=== PATIENT | male | born 1955 | race Caucasian/White ===

== ENCOUNTER 2018-08-26 11:15 | Day surgery (SDC) | payer OTHER ==
[2018-08-22 09:36] VITALS: BMI 29.5
[~2018-08-26 11:15] MED LIST: LACTATED RINGERS 1,000 ML IV SCH
[2018-08-26 11:56] VITALS: RESP 16; TEMP 98.8
[2018-08-26] MEDS ORDERED: LIDOCAINE 1% 20 ML VIAL (10MG/ML) FOR IV START INTRADERMA ONE (12:07)
[2018-08-26] MEDS ORDERED: PROPOFOL 10 MG/ML 20 ML VIAL IV ONE (12:52)
--- NOTE | 2018-08-26 13:18 | P.PCN ---
Date of Procedure: 08/26/18 Procedure(s) Performed: Procedure: Total colonoscopy. Preoperative diagnosis: Screening for neoplasia. Postoperative diagnosis: Exam within normal limits. Preparation: HalfLytely prep. Sedation: Was provided by anesthesia. Brief clinical history: The patient is a 63-year-old male who is scheduled for t his evaluation for screening for neoplasia age being his risk factor. There is no family history of colon cancer. He has no abdominal complaints, bleeding or anemia. This would be his first colonoscopy. Procedure: With the patient on his left lateral decubitus position and after informed consent and adequate sedation, the perianal area was inspected and it did not show any fissures or fistulas. He were no masses felt on digital rectal examination. The Olympus CFH 190L video colonoscope was then inserted in the rectum in the usual fashion and advanced to the cecum. The mucosa appeared he althy. No polyps or tumors were seen or any obvious diverticular disease or any other pathology. I retroflexed the endoscope in the rectum before the endoscope was withdrawn. Low-grade internal hemorrhoids were noted with no evidence of bleeding. The patient tolerated the procedure well. Plan: The patient was reassured. Discussed dietary measures and local care for hemorrhoids. He will follow up with you as planned and I recommended repeat exam in 10 years.
[2018-08-26 13:26] VITALS: BP 121/70; PULSE 70
== END 2018-08-26 14:05 | disposition home or self-care (01) ==
LOC: ORWHC2ENDO 11:15
DX: Z12.11 Encounter for screening for malignant neoplasm of colon (principal); I10 Essential (primary) hypertension; M10.9 Gout, unspecified; K64.8 Other hemorrhoids; Z79.899 Other long term (current) drug therapy
CPT/HCPCS: J2704; G0121

== ENCOUNTER 2019-10-17 02:50 | Observation (INO) | payer OTHER ==
[2019-10-17] MEDS ORDERED: SODIUM CHLORIDE 0.9% 1,000 ML IV STA (03:41)
[2019-10-17] MEDS ORDERED: MORPHINE SULFATE 4 MG/ML SYRINGE IV STA (03:41)
[2019-10-17] MEDS ORDERED: ONDANSETRON 4 MG/2 ML VIAL IVP STA (03:41)
--- NOTE | 2019-10-17 03:54 | ED ---
Abdominal Pain HPI - General Chief Complaint: Abdominal Pain Stated Complaint: Abd Pain Time Seen by Provider: 10/17/19 02:56 Source: patient Mode of arrival: ambulatory Limitations: no limitations - History of Present Illness Initial Comments: Antonio is a 44-year-old male who presents the ER today for evaluation of burning epigastric abdominal pain radiating to his back. Patient reports he's had mild episodes of pain similar to this in the past but never one that persisted. Patient reports the pain began yesterday evening and has kept him awake all night. He did have an episode of vomiting around 8 PM. No diarrhea. Normal bowel movement yesterday. She has never been worked up for this pain in the past. He does admit to frequent beer drinking. Patient denies any pain after eating or other signs of biliary colic. - Related Data Home Medications Medication Instructions Recorded Confirmed Allopurinol [Zyloprim] 300 mg PO DAILY 08/22/18 08/26/18 Lisinopril-Hctz 20-12.5 mg 1 tab PO DAILY 08/22/18 08/26/18 [Zestoretic 20-12.5] busPIRone HCL 15 mg PO DAILY 08/22/18 08/26/18 Allergies Allergy/AdvReac Type Severity Reaction Status Date / Time No Known Allergies Allergy Verified 10/17/19 02:59 Review of Systems ROS Statement: Those systems with pertinent positive or pertinent negative responses have been documented in the HPI. ROS Other: All systems not noted in ROS Statement are negative. Past Medical History Past Medical History: Hypertension Additional Past Medical History / Comment(s): GOUT, anxiety History of Any Multi-Drug Resistant Organisms: None Reported Past Surgical History: Orthopedic Surgery, Tonsillectomy Additional Past Surgical History / Comment(s): RT ANKLE SX, NECK SX AND SINUS SX Past Anesthesia/Blood Transfusion Reactions: No Reported Reaction Past Psychological History: Anxiety Smoking Status: Current every day smoker Past Alcohol Use History: None Reported Past Drug Use History: None Reported - Past Family History Mother Family Medical History: No Reported History General Exam - General Exam Comments Initial Comments: Physical Exam GENERAL: Patient is well-developed and well-nourished. Patient is nontoxic and well-hydrated and is in no distress. HENT: Normocephalic, Atraumatic. EYES: PERRL, EOMI PULMONARY: Unlabored respirations. CARDIOVASCULAR: RRR Warm and well perfused extremities ABDOMEN: Obese, tenderness to palpation in the epigastrium No pulsatile masses SKIN: No rashes or bruising : Deferred NEUROLOGIC: Alert and oriented Normal speech Normal gait MUSCULOSKELETAL: Moving all extremities with no apparent injury PSYCHIATRIC: No SI/HI Limitations: no limitations Course Vital Signs 10/17/19 10/17/19 02:55 05:15 Temperature 98.3 F Pulse Rate 80 80 Respiratory 18 18 Rate Blood Pressure 145/98 157/74 O2 Sat by Pulse 98 98 Oximetry Medical Decision Making - Medical Decision Making History and physical exam concerning for pancreatitis considering the history of alcohol drinking and the description of pain radiating from the epigastrium to the back Labs, antiemetics, analgesia and IV fluids ordered Patient reported minimal improvement in his discomfort after morphine, Dilaudid was ordered Labs resulted leukocytosis no other significant abnormalities CT scan with no obvious abnormalities there are gallstones in the gallbladder but no secondary signs of acute cholecystitis no fluid or inflammation noted Due to persistence of pain after 2 doses of narcotics patient will be admitted for observation, a consult to GI will be placed. Patient is previously followed with Dr. Jackson therefore consult to Dr. lennon she will be placed. Ultrasound to evaluate the gallbladder was placed. - Lab Data Result diagrams: 10/17/19 03:48 10/17/19 03:48 Lab Results 10/17/19 10/17/19 10/17/19 Range/Units 03:48 03:48 03:48 WBC 14.6 H (3.8-10.6) k/uL RBC 4.68 (4.30-5.90) m/uL Hgb 15.9 (13.0-17.5) gm/dL Hct 46.8 (39.0-53.0) % MCV 100.1 H (80.0-100.0) fL MCH 34.1 (25.0-35.0) pg MCHC 34.0 (31.0-37.0) g/dL RDW 13.6 (11.5-15.5) % Plt Count 257 (150-450) k/uL Neutrophils % 88 % Lymphocytes % 9 % Monocytes % 2 % Eosinophils % 0 % Basophils % 0 % Neutrophils # 12.8 H (1.3-7.7) k/uL Lymphocytes # 1.3 (1.0-4.8) k/uL Monocytes # 0.3 (0-1.0) k/uL Eosinophils # 0.0 (0-0.7) k/uL Basophils # 0.0 (0-0.2) k/uL Sodium 133 L (137-145) mmol/L Potassium 4.4 (3.5-5.1) mmol/L Chloride 100 (98-107) mmol/L Carbon Dioxide 25 (22-30) mmol/L Anion Gap 8 mmol/L BUN 12 (9-20) mg/dL Creatinine 1.13 (0.66-1.25) mg/dL Est GFR (CKD-EPI)AfAm 79 (>60 ml/min/1.73 sqM) Est GFR (CKD-EPI)NonAf 69 (>60 ml/min/1.73 sqM) Glucose 152 H (74-99) mg/dL Calcium 9.8 (8.4-10.2) mg/dL Total Bilirubin 0.4 (0.2-1.3) mg/dL AST 22 (17-59) U/L ALT 19 (4-49) U/L Alkaline Phosphatase 98 (38-126) U/L Troponin I <0.012 (0.000-0.034) ng/mL Total Protein 7.5 (6.3-8.2) g/dL Albumin 4.6 (3.5-5.0) g/dL Amylase 54 (30-110) U/L Lipase 69 (23-300) U/L Urine Color Urine Appearance (Clear) Urine pH (5.0-8.0) Ur Specific [place] (1.001-1.035) Urine Protein (Negative) Urine Glucose (UA) (Negative) Urine Ketones (Negative) Urine Blood (Negative) Urine Nitrite (Negative) Urine Bilirubin (Negative) Urine Urobilinogen (<2.0) mg/dL Ur Leukocyte Esterase (Negative) 10/17/19 Range/Units 04:19 WBC (3.8-10.6) k/uL RBC (4.30-5.90) m/uL Hgb (13.0-17.5) gm/dL Hct (39.0-53.0) % MCV (80.0-100.0) fL MCH (25.0-35.0) pg MCHC (31.0-37.0) g/dL RDW (11.5-15.5) % Plt Count (150-450) k/uL Neutrophils % % Lymphocytes % % Monocytes % % Eosinophils % % Basophils % % Neutrophils # (1.3-7.7) k/uL Lymphocytes # (1.0-4.8) k/uL Monocytes # (0-1.0) k/uL Eosinophils # (0-0.7) k/uL Basophils # (0-0.2) k/uL Sodium (137-145) mmol/L Potassium (3.5-5.1) mmol/L Chloride (98-107) mmol/L Carbon Dioxide (22-30) mmol/L Anion Gap mmol/L BUN (9-20) mg/dL Creatinine (0.66-1.25) mg/dL Est GFR (CKD-EPI)AfAm (>60 ml/min/1.73 sqM) Est GFR (CKD-EPI)NonAf (>60 ml/min/1.73 sqM) Glucose (74-99) mg/dL Calcium (8.4-10.2) mg/dL Total Bilirubin (0.2-1.3) mg/dL AST (17-59) U/L ALT (4-49) U/L Alkaline Phosphatase (38-126) U/L Troponin I (0.000-0.034) ng/mL Total Protein (6.3-8.2) g/dL Albumin (3.5-5.0) g/dL Amylase (30-110) U/L Lipase (23-300) U/L Urine Color Yellow Urine Appearance Clear (Clear) Urine pH 6.0 (5.0-8.0) Ur Specific [place] 1.018 (1.001-1.035) Urine Protein Negative (Negative) Urine Glucose (UA) Negative (Negative) Urine Ketones Negative (Negative) Urine Blood Negative (Negative) Urine Nitrite Negative (Negative) Urine Bilirubin Negative (Negative) Urine Urobilinogen <2.0 (<2.0) mg/dL Ur Leukocyte Esterase Negative (Negative) Disposition Clinical Impression: Abdominal pain Disposition: ADMITTED IP TO THIS [facility] Condition: Stable Is patient prescribed a controlled substance at d/c from ED?: No Referrals: Mira Gonsalves DO [Primary Care Provider] - 1-2 days
[2019-10-17 03:55] LABS: Basophils % (A) 0 %; Eosinophils % (A) 0 %; HCT 46.8 % (39.0-53.0); HGB 15.9 gm/dL (13.0-17.5); Lymphocytes # (A) 1.3 k/uL (1.0-4.8); Lymphocytes % (A) 9 %; MCH 34.1 pg (25.0-35.0); MCV 100.1 fL (80.0-100.0); Monocytes # (A) 0.3 k/uL (0-1.0); Monocytes % (A) 2 %; Neutrophils # (A) 12.8 k/uL (1.3-7.7); Neutrophils % (A) 88 %; Platelet Count 257 k/uL (150-450); RBC 4.68 m/uL (4.30-5.90); RDW 13.6 % (11.5-15.5); WBC 14.6 k/uL (3.8-10.6)
[2019-10-17 04:03] LABS: Albumin 4.6 g/dL (3.5-5.0); Calcium 9.8 mg/dL (8.4-10.2); Potassium 4.4 mmol/L (3.5-5.1); Total Bilirubin 0.4 mg/dL (0.2-1.3); Total Protein 7.5 g/dL (6.3-8.2)
--- NOTE | 2019-10-17 04:17 | XR ---
EXAMINATION TYPE: XR KUB DATE OF EXAM: 10/17/2019 COMPARISON: NONE HISTORY: Abdominal pain TECHNIQUE: 2 views upright FINDINGS: There is no sign of intestinal obstruction or pneumoperitoneum. Fecal pattern is normal. Meghan ng bases are clear. There are no pathologic calcifications over the kidneys. IMPRESSION: Nonacute abdomen.
[2019-10-17 04:27] LABS: Appearance,Urine Clear (Clear); Bilirubin,Urine Negative (Negative); Blood,Urine Negative (Negative); Color,Urine Yellow; Glucose,Urine (UA) Negative (Negative); Ketones,Urine Negative (Negative); Leukocyte Esterase,Urine Negative (Negative); Nitrite,Urine Negative (Negative); Protein,Urine Negative (Negative); Specific Gravity,Urine 1.018 (1.001-1.035); Urobilinogen,Urine <2.0 mg/dL (<2.0)
[2019-10-17] MEDS ORDERED: HYDROmorphone 1 MG/ML 1 ML SYRINGE IVP STA (05:12)
--- NOTE | 2019-10-17 05:18 | CT ---
EXAMINATION TYPE: CT abdomen pelvis w con DATE OF EXAM: 10/17/2019 COMPARISON: None HISTORY: Abd Pain Back pain CT DLP: 1291.20 mGycm Automated exposure control for dose reduction was used. CONTRAST: Performed with IV Contrast, patient injected with 100 mL of Isovue 300. Lung bases are clear of consolidation. There is mild subsegmental atelectasis. Heart size is normal. There is no pericardial effusion. There is no pleural effusion. Liver shows no focal defect. There ap pears to be multiple gallstones. The bile ducts are not dilated. Spleen is intact. Stomach is intact. There is no pancreatic mass. There is no adrenal mass. Left kidney is relatively small with cortical thinning. Right kidney shows some compensatory hypertrophy. There is no hydronephrosis. There is no evidence of a renal mass. Ther e is no retroperitoneal adenopathy. Ureters are not dilated. Bladder distends smoothly. There is no i nguinal hernia. There is no free fluid in the pelvis. Appendix is posterior and medial and appears normal. There is no mesenteric edema. There is no ascite s or free air. There is no sign of a bowel obstruction. Lumbar vertebra have normal spacing and alignment. There is no compression fracture. Bony pelvis is i ntact. IMPRESSION: Normal appendix. No sign of acute abnormality within the abdomen pelvis. Renal asymmetry. No renal ma ss or obstruction.
[2019-10-17] MEDS ORDERED: MAG HYDROX/AL HYDROX/SIMETH 30 ML, HYOSCYAMINE ELIXIR 10 ML, LIDOCAINE VISCOUS 2% 10 ML PO STA ×3 (05:48)
[2019-10-17] MEDS ORDERED: NALOXONE 0.4 MG/ML 1 ML VIAL IV PRN (05:51)
[2019-10-17] MEDS: SODIUM CHLORIDE 0.9% 1,000 ML IV SCH ×2 (06:09→12:32)
[2019-10-17] MEDS: MORPHINE SULFATE 4 MG/ML SYRINGE IV PRN ×3 (07:33→15:54)
[2019-10-17] MEDS ORDERED: PANTOPRAZOLE 40 MG/10 ML VIAL IV SCH (09:00)
--- NOTE | 2019-10-17 09:19 | US ---
EXAMINATION TYPE: US gallbladder DATE OF EXAM: 10/17/2019 COMPARISON: CT CLINICAL HISTORY: epigastric pain, stones on CT. Stones on CT. Pain. EXAM MEASUREMENTS: Liver Length: 20.9 cm Gallbladder Wall: 0.2 cm CBD: 0.4 cm Right Kidney: 11.4 x 5.1 x 4.8 cm Pancreas: Echogenic in appearance. Tail obscured by overlying bowel gas. Liver: Increased attenuation, decreased visualization of vessels suggestive of fatty infiltrate. Ec hogenic and enlarged. Appears coarse. Gallbladder: Stones seen. Two located by the neck, one appeared mobile. Largest = 1.6 cm. Evidence for sonographic Betancur's sign: neg CBD: wnl Right Kidney: No hydronephrosis or masses seen IMPRESSION: 1. Hepatomegaly with mild fatty infiltration. 2. Cholelithiasis
[2019-10-17] MEDS: DICYCLOMINE 20 MG TAB PO SCH ×3 (12:28→21:13)
--- NOTE | 2019-10-17 15:02 | P.HPIM ---
History of Present Illness This is a pleasant 64 years old male with past medical history of hypertension and gout. Cigarette smoker and anxiety. He presents because of abdominal pain, right middle abdomen which is starts at about 6 PM last night and gradually gets worse and in the midleft that he has to come to the hospital because it was like a valenzuela as 01/22, the pain radiating to the back. No associated with nausea vomiting, he did not have bowel movements is yesterday. No fever. No chest pain or dyspnea. No weakness in the lower extremity, no dysuria or urinary abnormality. Vitals are stable. Labs showed leukocytosis of 14.6 K. Sodium 133. Rest of BMP, liver enzymes are unremarkable. Troponin is negative less than 0.012, urine analysis is negativeCT of the abdomen and pelvis: Normal appendix. No signs of acute abnormality within the abdomen and pelvis. Renal asymmetry. No renal mass or obstruction. Multiple gallstones Normal bile duct, no hydronephrosis. Hepatomegaly with fatty infiltration. Cholelithiasis. In the emergency room he was treated with Dilaudid, Zofran with normal saline and 0.25 L/h Review of Systems CONSTITUTIONAL: No fever, no malaise, no fatigue. HEENT: No recent visual problems or hearing problems. Denied any sore throat. CARDIOVASCULAR: No orthopnea, PND, no palpitations, no syncope. PULMONARY: No shortness of breath, no cough, no hemoptysis. GASTROINTESTINAL: No diarrhea, no nausea, no vomiting, no abdominal pain. Normoactive bowel sounds. NEUROLOGICAL: No headaches, no weakness, no numbness. HEMATOLOGICAL: Denies any bleeding or petechiae. GENITOURINARY: Denies any burning micturition, frequency, or urgency. MUSCULOSKELETAL/RHEUMATOLOGICAL: Denies any joint pain, swelling, or any muscle pain. ENDOCRINE: Denies any polyuria or polydipsia. d Past Medical History Past Medical History: Hypertension Additional Past Medical History / Comment(s): GOUT, anxiety History of Any Multi-Drug Resistant Organisms: None Reported Past Surgical History: Orthopedic Surgery, Tonsillectomy Additional Past Surgical History / Comment(s): RT ANKLE SX, NECK SX AND SINUS SX Past Anesthesia/Blood Transfusion Reactions: No Reported Reaction Past Psychological History: Anxiety Smoking Status: Current every day smoker Past Alcohol Use History: None Reported Additional Past Alcohol Use History / Comment(s): SMOKES 1 PPD SINCE 1973 Past Drug Use History: None Reported - Past Family History Mother Family Medical History: No Reported History Medications and Allergies Home Medications Medication Instructions Recorded Confirmed Type Allopurinol [Zyloprim] 300 mg PO DAILY 08/22/18 10/17/19 History Lisinopril-Hctz 20-12.5 mg 1 tab PO DAILY 08/22/18 10/17/19 History [Zestoretic 20-12.5] busPIRone HCL 15 mg PO DAILY 08/22/18 10/17/19 History Ferrous Sulfate [Iron] 325 mg PO DAILY 10/17/19 10/17/19 History Allergies Allergy/AdvReac Type Severity Reaction Status Date / Time No Known Allergies Allergy Verified 10/17/19 02:59 Physical Exam Vitals: Vital Signs Temp Pulse Pulse Resp BP BP Pulse Ox 10/17/19 07:05 98.6 F 78 20 145/72 97 10/17/19 06:00 80 19 146/71 98 10/17/19 05:15 80 18 157/74 98 10/17/19 02:55 98.3 F 80 18 145/98 98 Intake and Output 10/16/19 10/17/19 10/17/19 22:59 06:59 14:59 Intake Total 200 Balance 200 Intake: Oral 200 Other: Weight 97.522 kg 97.522 kg GENERAL: The patient is alert and oriented x3, not in any acute distress. Well developed, well nourished. HEENT: Pupils are round and equally reacting to light. EOMI. No scleral icterus. No conjunctival pallor. Normocephalic, atraumatic. No pharyngeal erythema. No thyromegaly. CARDIOVASCULAR: S1 and S2 present. No murmurs, rubs, or gallops. PULMONARY: Chest is clear to auscultation, no wheezing or crackles. -ABDOMEN: Soft, mild tenderness to the right of the umbilicus, no rebound tenderness or guarding, nondistended, normoactive bowel sounds. No palpable organomegaly. MUSCULOSKELETAL: No joint swelling or deformity. EXTREMITIES: No cyanosis, clubbing, or pedal edema. NEUROLOGICAL: Gross neurological examination did not reveal any focal deficits. SKIN: No rashes. No petechiae Results CBC & Chem 7: 10/17/19 03:48 10/17/19 03:48 Labs: Abnormal Lab Results - Last 24 Hours (Table) 10/17/19 10/17/19 Range/Units 03:48 03:48 WBC 14.6 H (3.8-10.6) k/uL MCV 100.1 H (80.0-100.0) fL Neutrophils # 12.8 H (1.3-7.7) k/uL Sodium 133 L (137-145) mmol/L Glucose 152 H (74-99) mg/dL Thrombosis Risk Factor Assmnt - Choose All That Apply Each Risk Factor Represents 2 Points: Age 61-74 years Thrombosis Risk Factor Assessment Total Risk Factor Score: 2 Thrombosis Risk Factor Assessment Level: Low Risk Assessment and Plan Assessment: Abdominal pain, leukocytosis. Suspicious for gastroenteritis versus irritable bowel syndrome, versus others. GI consult Mild hypovolemic hyponatremia. Gallstones DVT prophylaxis, subcutaneous heparin GI prophylaxis Protonix
[2019-10-17] MEDS: HEPARIN SODIUM,PORCINE 5,000 UNIT/ML 1 ML VIAL SQ SCH (21:13)
[2019-10-17] MEDS: PANTOPRAZOLE 40 MG/10 ML VIAL IV SCH (21:13)
--- NOTE | 2019-10-17 21:23 | P.CONS ---
History of Present Illness - Reason for Consult Consult date: 10/17/19 Abdominal pain Requesting physician: Neno E Sheet - Chief Complaint Abdominal pain - History of Present Illness 64-year-old male with a past medical history significant for hypertension, gout, anxiety and tobacco abuse who presented for evaluation of abdominal pain. Antonieta manica describes pain occurring yesterday week ago from his sleep. He describes the pain as sharp and burning in the epigastric region of his abdomen with radiation to his back. Patient has had similar episodes of pain in the past and reports that this was worse than previous. He denies any nausea and vomiting with his symptoms. He denies any change in bowel habits, constipation, diarrhea, any signs or symptoms of GI bleeding including hematemesis, hematochezia or melena. He reports bowel movements are regular every other day. No prior endoscopic evaluation. Colonoscopy on 08/26/2018 was normal. Ultrasound of the abdomen on presentation showed hepatomegaly with cholelithiasis and a normal CBD of 0.4. Computed tomography scan of the abdomen was negative. Laboratory evaluation is significant for WBC 14.6, hemoglobin 15.9, platelet count 257,000, total bilirubin 0.4, alkaline phosphatase 98, AST 22 and ALP 19. Review of Systems REVIEW OF SYSTEMS: CONSTITUTIONAL: Denies any fevers, chills, weight change or fatigue. CARDIOVASCULAR: Denies any chest pain, palpitations high or low blood pressures RESPIRATORY: Denies any shortness of breath, hemoptysis or cough. GENITOURINARY: No dysuria or hematuria. MUSCULOSKELETAL: No weakness reported. SKIN: Denies any new rashes or lesions, jaundice or pallor. PSYCHIATRIC: Denies any depression or anxiety. NEUROLOGY: Denies headache, denies any new focal deficits. EARS/NOSE/THROAT: No recent hearing change, congestion, nasal discharge or sore throat. EYES: No pain in eyes, discharge or change in vision. GASTROINTESTINAL: As per HPI. Past Medical History Past Medical History: Hypertension Additional Past Medical History / Comment(s): GOUT, anxiety History of Any Multi-Drug Resistant Organisms: None Reported Past Surgical History: Orthopedic Surgery, Tonsillectomy Additional Past Surgical History / Comment(s): RT ANKLE SX, NECK SX AND SINUS SX Past Anesthesia/Blood Transfusion Reactions: No Reported Reaction Past Psychological History: Anxiety Smoking Status: Current every day smoker Past Alcohol Use History: None Reported Additional Past Alcohol Use History / Comment(s): SMOKES 1 PPD SINCE 1973 Past Drug Use History: None Reported - Past Family History Mother Family Medical History: No Reported History Medications and Allergies Home Medications Medication Instructions Recorded Confirmed Type Allopurinol [Zyloprim] 300 mg PO DAILY 08/22/18 10/17/19 History Lisinopril-Hctz 20-12.5 mg 1 tab PO DAILY 08/22/18 10/17/19 History [Zestoretic 20-12.5] busPIRone HCL 15 mg PO DAILY 08/22/18 10/17/19 History Ferrous Sulfate [Iron] 325 mg PO DAILY 10/17/19 10/17/19 History Allergies Allergy/AdvReac Type Severity Reaction Status Date / Time No Known Allergies Allergy Verified 10/17/19 02:59 Physical Exam Vitals: Vital Signs Temp Pulse Pulse Resp BP BP Pulse Ox 10/17/19 07:05 98.6 F 78 20 145/72 97 10/17/19 06:00 80 19 146/71 98 10/17/19 05:15 80 18 157/74 98 10/17/19 02:55 98.3 F 80 18 145/98 98 Intake and Output 10/16/19 10/17/19 10/17/19 22:59 06:59 14:59 Other: Weight 97.522 kg 97.522 kg On physical examination, patient appears comfortable in no apparent distress. HEAD: Normocephalic, atraumatic. EYES: No scleral icterus. No conjunctival injection. MOUTH: No lesions, tongue midline. NECK: Trachea midline, no gross abnormalities. CHEST: Clear to auscultation with no wheezing or rhonchi appreciated. HEART: Regular rate and rhythm. ABDOMEN: Soft, obese, mildly tender to palpation. Bowel sounds are positive. No organomegaly. No guarding or rigidity. EXTREMITIES: No pedal edema. SKIN: No rashes, no jaundice. NEUROLOGIC: Alert and oriented x3. No focal deficits. Results CBC & Chem 7: 10/17/19 03:48 10/17/19 03:48 Labs: Abnormal Lab Results - Last 24 Hours (Table) 10/17/19 10/17/19 Range/Units 03:48 03:48 WBC 14.6 H (3.8-10.6) k/uL MCV 100.1 H (80.0-100.0) fL Neutrophils # 12.8 H (1.3-7.7) k/uL Sodium 133 L (137-145) mmol/L Glucose 152 H (74-99) mg/dL CT scan - abdomen: report reviewed (Computed tomography scan of the abdomen negative for any acute intra-abdominal process.) Assessment and Plan (1) Abdominal pain Narrative/Plan: 64-year-old male who presented to the hospital with complaints of epigastric pain. He describes the pain as sharp, burning and severe in the epigastric region of his abdomen without radiation. Laboratory evaluation including liver enzymes, hemoglobin, and amylase and lipase are normal. Computed tomography scan of the abdomen negative for any acute intra-abdominal process. Ultrasound of the abdomen showing only cholelithiasis and some hepatomegaly with a normal CBD. Last colonoscopy in 08/26/2018 and normal. No prior EGD. He has had similar complaints in the past but reports are not as severe. No change in bowel habits, or signs or symptoms of GI bleeding including hematochezia, melena or hematemesis. Unclear etiology, suspicion is for uncontrolled reflux disease, functional bowel disorder, or possibly symptomatic cholelithiasis, with no evidence of dilated CBD for elevated liver enzymes to suggest c holedocholithiasis, or other etiology. Current Visit: Yes Status: Acute Code(s): R10.9 - UNSPECIFIED ABDOMINAL PAIN SNOMED Code(s): 47808390 (2) Cholelithiasis Current Visit: Yes Status: Acute Code(s): K80.20 - CALCULUS OF GALLBLADDER W/O CHOLECYSTITIS W/O OBSTRUCTION SNOMED Code(s): 728169717 Plan: Supportive care Okay for clear liquid diet Protonix 40 mg twice daily added Dicyclomine 4 times a day for possible functional bowel disorder Will order x-ray of the abdomen tomorrow for assessment of stool burden Continue to monitor CBC, BMP, LFTs and clinically Thank you for allowing us to participate in the care of the patient
[2019-10-18] MEDS: SODIUM CHLORIDE 0.9% 1,000 ML IV SCH (02:40)
--- NOTE | 2019-10-18 07:18 | XR ---
EXAMINATION TYPE: XR abdomen 1V DATE OF EXAM: 10/18/2019 COMPARISON: NONE HISTORY: Pain TECHNIQUE: One view abdominal series FINDINGS: The osseous structures are intact. The bowel gas pattern is nonspecific. There are few prominent sma ll bowel loops. Air is seen in the colon. Hypertrophic change of the spine. Lung bases clear. IMPRESSION: 1. Nonspecific abdomen correlate for ileus or enteritis. Partial obstruction not excluded.
[2019-10-18 08:09] VITALS: BP 133/74; PULSE 72; RESP 16; TEMP 98.2
[2019-10-18] MEDS: PANTOPRAZOLE 40 MG/10 ML VIAL IV SCH (08:14)
[2019-10-18] MEDS: HEPARIN SODIUM,PORCINE 5,000 UNIT/ML 1 ML VIAL SQ SCH (08:14)
[2019-10-18] MEDS: DICYCLOMINE 20 MG TAB PO SCH (08:14)
[2019-10-18 08:25] LABS: Basophils % (A) 0 %; Eosinophils # (A) 0.2 k/uL (0-0.7); Eosinophils % (A) 2 %; HCT 40.7 % (39.0-53.0); HGB 13.2 gm/dL (13.0-17.5); Lymphocytes # (A) 1.7 k/uL (1.0-4.8); Lymphocytes % (A) 16 %; MCH 32.1 pg (25.0-35.0); MCHC 32.5 g/dL (31.0-37.0); MCV 98.8 fL (80.0-100.0); Mean Platelet Volume 7.8; Monocytes # (A) 0.6 k/uL (0-1.0); Monocytes % (A) 6 %; Neutrophils # (A) 7.7 k/uL (1.3-7.7); Neutrophils % (A) 75 %; Platelet Count 195 k/uL (150-450); RBC 4.12 m/uL (4.30-5.90); RDW 13.2 % (11.5-15.5); WBC 10.3 k/uL (3.8-10.6)
[2019-10-18 08:39] LABS: ALT 14 U/L (4-49); AST 17 U/L (17-59); African American GFR (CKD) >90 (>60 ml/min/1.73 sqM); Albumin 3.3 g/dL (3.5-5.0); Alkaline Phosphatase 68 U/L (38-126); Anion Gap 5 mmol/L; Blood Urea Nitrogen 9 mg/dL (9-20); Calcium 8.2 mg/dL (8.4-10.2); Carbon Dioxide 24 mmol/L (22-30); Chloride 106 mmol/L (98-107); Glucose 126 mg/dL (74-99); Non-African American GFR(CKD) 86 (>60 ml/min/1.73 sqM); Potassium 3.9 mmol/L (3.5-5.1); Sodium 135 mmol/L (137-145); Total Bilirubin 0.7 mg/dL (0.2-1.3); Total Protein 5.7 g/dL (6.3-8.2)
--- NOTE | 2019-10-18 11:22 | P.PN ---
Subjective This is a pleasant 64 years old male with past medical history of hypertension and gout. Cigarette smoker and anxiety. He presents because of abdominal pain, right middle abdomen which is starts at about 6 PM last night and gradually gets worse and in the midleft that he has to come to the hospital because it was like a valenzuela as 01/22, the pain radiating to the back. No associated with nausea vomiting, he did not have bowel movements is yesterday. No fever. No chest pain or dyspnea. No weakness in the lower extremity, no dysuria or urinary abnormality. Vitals are stable. Labs showed leukocytosis of 14.6 K. Sodium 133. Rest of BMP, liver enzymes are unremarkable. Troponin is negative less than 0.012, urine analysis is negativeCT of the abdomen and pelvis: Normal appendix. No signs of acute abnormality within the abdomen and pelvis. Renal asymmetry. No renal mass or obstruction. Multiple gallstones Normal bile duct, no hydronephrosis. Hepatomegaly with fatty infiltration. Cholelithiasis. In the emergency room he was treated with Dilaudid, Zofran with normal saline and 0.25 L/h 10/18/2019 Patient abdominal pain is easing down to /10, however he didn't have a chance to eat although he did not complain from nausea vomiting because he has decreased appetite, he did not have bowel movement for 2 days and he still comp laining of from RUQ tenderness. He is hemodynamically stable. CBC and BMP is unremarkable. UA is negative. Gallbladder ultrasound showing cholelithiasis with 2 stones located at the neck and one appear mobile, the largest is 1.6 cm. Patient might benefit from surgical evaluation, we'll try to keep him today to see if he is able to eat and his symptoms subsided than maybe he can be discharged home and address his biliary problem as an outpatient, however if his symptoms get worse by tomorrow then may need inpatient cholecystectomy. Objective - Vital Signs Vital signs: Vital Signs Temp 98.2 F 10/18/19 08:07 Pulse 72 10/18/19 08:07 Resp 16 10/18/19 08:07 BP 133/74 10/18/19 08:07 Pulse Ox 95 10/18/19 08:07 Intake & Output 10/17/19 10/18/19 10/18/19 18:59 06:59 18:59 Intake Total 436 Balance 436 Weight 97.522 kg 95.9 kg Intake: Oral 436 Other: Voiding Method Toilet # Voids 3 1 - Exam GENERAL: The patient is alert and oriented x3, not in any acute distress. Well developed, well nourished. HEENT: Pupils are round and equally reacting to light. EOMI. No scleral icterus. No conjunctival pallor. Normocephalic, atraumatic. No pharyngeal erythema. No thyromegaly. CARDIOVASCULAR: S1 and S2 present. No murmurs, rubs, or gallops. PULMONARY: Chest is clear to auscultation, no wheezing or crackles. -ABDOMEN: Soft, mild tenderness to the right of the umbilicus, no rebound tenderness or guarding, nondistended, normoactive bowel sounds. No palpable organomegaly. MUSCULOSKELETAL: No joint swelling or deformity. EXTREMITIES: No cyanosis, clubbing, or pedal edema. NEUROLOGICAL: Gross neurological examination did not reveal any focal deficits. SKIN: No rashes. No petechiae - Labs CBC & Chem 7: 10/18/19 07:34 10/18/19 07:34 Labs: Abnormal Lab Results - Last 24 Hours (Table) 10/18/19 10/18/19 Range/Units 07:34 07:34 RBC 4.12 L (4.30-5.90) m/uL Sodium 135 L (137-145) mmol/L Glucose 126 H (74-99) mg/dL Calcium 8.2 L (8.4-10.2) mg/dL Total Protein 5.7 L (6.3-8.2) g/dL Albumin 3.3 L (3.5-5.0) g/dL Assessment and Plan Assessment: -Biliary colic: With cholelithiasis and gallstones. Continue with pain medication. surgical team consult -Hypovolemic hyponatremia, improving DVT prophylaxis, subcutaneous heparin GI prophylaxis Protonix
--- NOTE | 2019-10-18 16:18 | P.PN ---
Subjective Progress Note Date: 10/18/19 Principal diagnosis: Abdominal pain, cholelithiasis Patient is seen lying in bed reporting abdominal pain is somewhat improved. No nausea or vomiting. Tolerated diet. Objective - Vital Signs Vital signs: Vital Signs Temp 98.2 F 10/18/19 08:07 Pulse 72 10/18/19 08:07 Resp 16 10/18/19 08:07 BP 133/74 10/18/19 08:07 Pulse Ox 95 10/18/19 08:07 Intake & Output 10/17/19 10/18/19 10/18/19 18:59 06:59 18:59 Intake Total 436 Balance 436 Weight 97.522 kg 95.9 kg Intake: Oral 436 Other: Voiding Method Toilet # Voids 3 1 - Exam On physical examination, patient appears comfortable in no apparent distress. HEAD: Normocephalic, atraumatic. EYES: No scleral icterus. No conjunctival injection. MOUTH: No lesions, tongue midline. NECK: Trachea midline, no gross abnormalities. ABDOMEN: Soft, obese. Bowel sounds are positive. No organomegaly. No guarding or rigidity. EXTREMITIES: No pedal edema. SKIN: No rashes, no jaundice. NEUROLOGIC: Alert and oriented x3. No focal deficits. - Labs CBC & Chem 7: 10/18/19 07:34 10/18/19 07:34 Labs: Abnormal Lab Results - Last 24 Hours (Table) 10/18/19 10/18/19 Range/Units 07:34 07:34 RBC 4.12 L (4.30-5.90) m/uL Sodium 135 L (137-145) mmol/L Glucose 126 H (74-99) mg/dL Calcium 8.2 L (8.4-10.2) mg/dL Total Protein 5.7 L (6.3-8.2) g/dL Albumin 3.3 L (3.5-5.0) g/dL Assessment and Plan (1) Abdominal pain Narrative/Plan: 64-year-old male who presented to the hospital with complaints of epigastric pain. He describes the pain as sharp, burning and severe in the epigastric region of his abdomen without radiation. Laboratory evaluation including liver enzymes, hemoglobin, and amylase and lipase are normal. Computed tomography scan of the abdomen negative for any acute intra-abdominal process. Ultrasound of the abdomen showing only cholelithiasis and some hepatomegaly with a normal CBD. Last colonoscopy in 08/26/2018 and normal. No prior EGD. He has had similar complaints in the past but reports are not as severe. No change in bowel habits, or signs or symptoms of GI bleeding including hematochezia, melena or hematemesis. Unclear etiology, suspicion is for uncontrolled reflux disease, functional bowel disorder, or possibly symptomatic cholelithiasis, with no evidence of dilated CBD for elevated liver enzymes to suggest choledocholithiasis, or other etiology. Status: Acute Code(s): R10.9 - UNSPECIFIED ABDOMINAL PAIN SNOMED Code(s): 05886680 (2) Cholelithiasis Status: Acute Code(s): K80.20 - CALCULUS OF GALLBLADDER W/O CHOLECYSTITIS W/O OBSTRUCTION SNOMED Code(s): 250723208 Plan: Supportive care Okay for low-fat diet Protonix 40 mg twice daily added Dicyclomine 4 times a day for possible functional bowel disorder Surgical service has seen the patient with gallstone noted in the neck for gallbladder and suspicion for symptomatic cholelithiasis, plan is for outpatient cholecystectomy Continue to monitor CBC, BMP, LFTs and clinically Thank you for allowing us to participate in the care of the patient
== END 2019-10-18 12:36 | disposition home or self-care (01) ==
LOC: EC 02:50 → 1SOBS 05:52
PROVIDERS: ADMIT Hospitalist; ATTEND Hospitalist
DX: K80.70 Calculus of gallbladder and bile duct without cholecystitis without obstruction (principal); I10 Essential (primary) hypertension; F17.210 Nicotine dependence, cigarettes, uncomplicated; F41.9 Anxiety disorder, unspecified; M10.9 Gout, unspecified; D72.829 Elevated white blood cell count, unspecified; R16.0 Hepatomegaly, not elsewhere classified; E87.1 Hypo-osmolality and hyponatremia; E86.1 Hypovolemia; E66.9 Obesity, unspecified; Z68.31 Body mass index [BMI] 31.0-31.9, adult; Z79.899 Other long term (current) drug therapy; Z11.59 Encounter for screening for other viral diseases
CPT/HCPCS: 96361 ×3; 96372 ×2; 96375 ×2; 96376 ×2; 96374; 99285; 36415; 80053 ×2; 82150; 83690; 84484; 85025 ×2; 81003; 74018 ×2; 76705; 74177; G0378 ×2; U0003; J2270; J1644 ×2; J2405; J1170; C9113 ×2; Q9967

== ENCOUNTER → 2020-05-12 | Outpatient (CLI) | payer MEDICARE ==
[2020-05-12 14:49] LABS: Appearance,Urine Clear (Clear); Bilirubin,Urine Negative (Negative); Blood,Urine Negative (Negative); Color,Urine Light Yellow; Glucose,Urine (UA) Negative (Negative); Ketones,Urine Negative (Negative); Leukocyte Esterase,Urine Negative (Negative); Nitrite,Urine Negative (Negative); Protein,Urine Negative (Negative); Specific Gravity,Urine 1.006 (1.001-1.035); Urobilinogen,Urine <2.0 mg/dL (<2.0)
[2020-05-12 14:55] LABS: INR 0.9 (<1.2); Partial Thromboplastin Time 24.4 sec (22.0-30.0); Prothrombin Time 10.1 sec (9.0-12.0)
[2020-05-12 14:59] LABS: Albumin 4.5 g/dL (3.5-5.0); Calcium 9.5 mg/dL (8.4-10.2); Potassium 4.8 mmol/L (3.5-5.1); Total Bilirubin 0.5 mg/dL (0.2-1.3); Total Protein 7.9 g/dL (6.3-8.2)
== END | disposition home or self-care (01) ==
LOC: LABPAT 13:42
PROVIDERS: ATTEND Orthopaedic Surgery
DX: Z01.818 Encounter for other preprocedural examination (principal); Z79.01 Long term (current) use of anticoagulants; Z01.812 Encounter for preprocedural laboratory examination
CPT/HCPCS: 36415; 80053; 81003; 85610; 85730; 87070

== ENCOUNTER 2020-05-17 05:34 | Day surgery (SDC) | payer MEDICARE, OTHER ==
[2020-05-10 15:23] VITALS: BMI 31.0
[~2020-05-17 05:34] MED LIST changes: +ACETAMINOPHEN TAB 500 MG TAB PO PRN; +DEXAMETHASONE SOD PHOSPHATE 4 MG/ML 1 ML VIAL IV ONE; +GABAPENTIN 300 MG CAP PO PRN; -LACTATED RINGERS 1,000 ML IV SCH; +MELOXICAM 7.5 MG TAB PO PRN; +ONDANSETRON 4 MG/2 ML VIAL IVP ONE; +ROPIVACAINE 246.25 MG, EPINEPHrine 0.5 MG, KETOROLAC 30 MG, cloNIDine HCL/PF 80 MCG, WA... MISCELLANE PRN; +TRANEXAMIC ACID 1,000 MG in SODIUM CHLORIDE 0.9% 100 ML IVPB PRN
[2020-05-17] MEDS: LACTATED RINGERS 1,000 ML IV SCH ×2 (06:11→10:08)
[2020-05-17] MEDS ORDERED: HYDROmorphone 0.5 MG/0.5 ML SYRINGE IVP PRN ×2 (06:59)
[2020-05-17] MEDS ORDERED: ONDANSETRON 4 MG/2 ML VIAL IVP PRN (06:59)
[2020-05-17] MEDS ORDERED: NALOXONE 0.4 MG/ML 1 ML VIAL IV PRN (06:59)
[2020-05-17] MEDS ORDERED: HYDROmorphone 0.2 MG/1 ML SYRINGE IVP PRN (06:59)
[2020-05-17] MEDS ORDERED: SODIUM CHLORIDE 0.9% 1,000 ML IV SCH (07:00)
[2020-05-17] MEDS ORDERED: HYDROcodone/APAP 7.5-325MG 1 EACH TAB PO PRN ×2 (07:01)
[2020-05-17] MEDS ORDERED: ceFAZolin 3,000 MG in SODIUM CHLORIDE 0.9% IRRIGATIO 3,000 ML IRRIGATION ONE (07:17)
--- NOTE | 2020-05-17 08:15 | P.OP ---
Date of Procedure: 05/17/20 Preoperative Diagnosis: Avascular necrosis right hip Postoperative Diagnosis: Avascular necrosis right hip Procedure(s) Performed: Right total hip arthroplasty with a direct anterior approach Implants: [employer] Polarstem standard size 7 [employer] R3, 3 hole hemispherical acetabular shell, 48 mm [employer] Reflection 6.5 mm cancellus screw, 20 mm 2 [employer] R3, XLPE 20 acetabular liner [employer] Oxinium femoral head 32 m, +4 All components were press-fit. The articulation is Oxinium on polyethylene. Anesthesia: GETA Surgeon: Bobby Kolb Egg Separator #1: Harriet Luz Estimated Blood Loss (ml): 200 (66 mL returned with Cell Saver) Pathology: other (Femoral head) Condition: stable Disposition: PACU Indications for Procedure: After failure of conservative treatment we discussed the surgical and nonsurgical treatment options at length. Patient wishes to proceed with a total hip arthroplasty with a direct anterior approach. Complications specific to this procedure were discussed at length, including but not limited to infection, leg length discrepancy, dislocation, nerve injury, and fracture. Covid-19 was also discussed at length with the patient, and they are aware of the current policies and procedures. The patient was given the option of delaying surgery, but they elect to proceed knowing these risks. Patient is aware of all these complications and informed consent was obtained Operative Findings: The operative findings are consistent with avascular necrosi of the femoral head with delamination of the articular cartilage Description of Procedure: Patient was seen and evaluated in the preoperative area and the consent was reviewed. The operative site was marked with a skin marker. The patient was then brought to the operating room and given preoperative antibiotics intravenously. 1 g of Tranexamic acid was also given intravenously. A general anesthetic was administered by the anesthesia department. The patient was then placed on the Hardy table with the bony prominences well-padded. The hip area was then prepped with a ChloraPrep solution and draped in the usual sterile fashion. A universal timeout was then performed, which confirmed the patient's name, surgical site, ALLERGIES, and procedure being performed on the consent. Next the incision site was located at the flexion crease of the right hip. The skin and subcutaneous tissues were sharply incised. Incision was carefully dissected down to the fascia overlying the tensor fascia shanelle muscle. This fascia was then incised in line with the incision. Care was taken to stay laterally in order to avoid injuring the lateral femoral cutaneous nerve. Next, using blunt finger dissection, the tensor fascia shanelle muscle was dissected off its investing fascia. The muscle was then carefully retracted laterally with a cobra retractor over the lateral neck of the femur. Next, the circumflex vessels were identified and cauterized using the AquaMantis device. The anterior hip capsule was then exposed. The capsule was then opened and an inverted T fashion. Cobra retractors were then placed intracapsularly. The retractors were maintained intracapsular throughout the procedure. The proximal femur was then visualized. A small amount of traction was placed on the leg. The femoral neck was then osteotomized appropriate level above the lesser trochanter. A small wedge of bone was then removed from the remaining femoral head. Next, using a corkscrew the femoral head was removed from the acetabulum. On gross visual inspection, the femoral head had complete loss of articular cartilage and multiple periarticular osteophytes. The femoral head was then measured. Attention was then turned to the acetabulum. The acetabulum was exposed and any remaining labrum was excised. Sequential reaming of the acetabulum was performed using fluoroscopic guidance until there was a good bed of bleeding cancellus bone. When the appropriate size was reached, a trial was then placed. The position and fit of the trial was checked with fluoroscopy. The trial was then removed. Then, using fluoroscopic guidance, the final implant was impacted at 20 of anteversion and 40 of abduction, and fully seated in the acetabulum. 2 screws were then placed in the acetabulum. Again fluoroscopy was used to check position of the screws. Next, the liner was then impacted, with a 20 elevated liner located in the anterior superior quadrant. Component locking was confirmed. Attention was then directed to the femur. With the aid of the Hardy table, the femur was externally rotated to approximately 130, extended, and adducted under the opposite leg. A side hook was then placed under the proximal femur, and the side hook elevator was used to elevate the proximal femur while releasing the capsule. Retractors were then placed. A capsular release was performed, as well as a release of the conjoined tendon, which afforded excellent visualization of the proximal femur. Next, a box osteotome was used to lateralize the proximal femur. A hand quilter was then used to locate the femoral canal. Sequential broaching was then performed with appropriate size which afforded excellent fixation in the proximal femur. A trial was then placed with appropriate head and neck, and the hip was gently reduced with the aid of the Hardy table. Fluoroscopy was then used to check position of the components, as well as to ensure equal leg lengths. The hip was then gently dislocated and the trials were then removed. Final implants were then impacted and the hip was again reduced. Final fluoroscopic x-rays confirmed that the components were in anatomic position, as well as equal leg lengths. The hip was also taken through range of motion, and found to be stable. The hip was then copiously irrigated with antibiotic solution with pulsatile lavage. The hip was then irrigated with Irrisept solution. The soft tissues we re then injected with a ropivacaine solution, which consisted of 246.25 mg of ropivacaine, 0.5 mg of epinephrine, 30 mg of Toradol, 80 g of clonidine, and 48.45 mL of sterile water, for a total of 100 mL of fluid injected. A second dose of 1 g of Tranexamic acid was also given intravenously. Any blood collected by Cell Saver was then returned to the patient at this time. The fascia was then closed with 2-0 strata fix suture. The subcutaneous tissue was closed with 3-0 Vicryl. The subcuticular tissue was closed with 3-0 strata fix suture. The skin was then closed with Exofin skin glue. After the glue and dried, and Optifoam silver impregnated dressing was applied. The patient was then transferred to the recovery room in stable condition. The hotel assistant general manager YAW Bond was required due to the complexity of surgery, and the need for skilled surgical first assistant for positioning, draping, exposure, retraction, and closure of the wound.
[2020-05-17] MEDS: HYDROmorphone 0.5 MG/0.5 ML SYRINGE IVP PRN ×3 (08:40→09:28)
[2020-05-17 08:42] VITALS: TEMP 97.4
--- NOTE | 2020-05-17 08:42 | FL ---
Fluoroscopy HISTORY: Right total hip arthroplasty 42 seconds fluoroscopy time supplied to the referring clinician. 2 intraoperative C-arm images docum ent the procedure. See dictated report from orthopedic surgery..
[2020-05-17] MEDS ORDERED: fentaNYL (PF) 50 MCG/ML 2 ML AMP IVP ONE ×2 (08:53→09:09)
--- NOTE | 2020-05-17 09:22 | XR ---
Limited right hip HISTORY: Status post right hip arthroplasty Single frontal view of the right hip Patient is status post right hip arthroplasty. There is lucency in the soft tissues. There is anatomi c alignment. IMPRESSION: Orthopedic follow-up.
--- NOTE | 2020-05-17 09:28 | XR ---
Fluoroscopy HISTORY: Hip arthroplasty 42 seconds fluoroscopy time supplied to the referring clinician. 2 intraoperative C-arm images docum ent the procedure. See dictated report from orthopedic surgery.
[2020-05-17] MEDS ORDERED: HYDROmorphone 0.5 MG/0.5 ML SYRINGE IVP ONE (09:40)
[2020-05-17 10:55] VITALS: RESP 16
[2020-05-17] MEDS ORDERED: HYDROcodone/APAP 7.5-325MG 1 EACH TAB PO ONE (12:00)
[2020-05-17 13:18] VITALS: BP 120/95; PULSE 84
== END 2020-05-17 14:01 | disposition home health service (06) ==
LOC: OR 05:34
PROVIDERS: ATTEND Orthopaedic Surgery
DX: M87.051 Idiopathic aseptic necrosis of right femur (principal); M16.11 Unilateral primary osteoarthritis, right hip; M25.751 Osteophyte, right hip; J43.9 Emphysema, unspecified; M10.9 Gout, unspecified; I10 Essential (primary) hypertension; Z97.3 Presence of spectacles and contact lenses; Z98.890 Other specified postprocedural states; Z79.899 Other long term (current) drug therapy; Z72.0 Tobacco use
CPT/HCPCS: 97161; 86891; 88305; 88311; 73501; 27130; P9022; C1776; J0171; J1100; J0690 ×2; J2405; J3010; J1885; J2795; J0735; J1170; 86850; 86900; 86901

== ENCOUNTER 2020-12-10 20:56 | Emergency (ER) | payer MEDICARE ==
[2020-12-10] MEDS ORDERED: SODIUM CHLORIDE 0.9% 500 ML 500 ML IV STA (21:34)
--- NOTE | 2020-12-10 21:40 | ED ---
General Adult HPI - General Chief complaint: Neuro Symptoms/Deficit Stated complaint: L leg numb, headache Time Seen by Provider: 12/10/20 21:13 Source: patient Mode of arrival: wheelchair Limitations: no limitations - History of Present Illness Initial comments: This patient is a 65-year-old man who presents with about a week of intermittent left leg numbness. Patient states she also at times feels "woozy" like he may pass out. Patient denies headache. No change in vision, speech, swallowing. Denies weakness currently. Patient smokes approximately one pack of cigarettes per day. States he drinks a few beers per day Onset/Timin -: week(s) Location: left, lower extremity Severity scale (1-10): 0 Consistency: intermittent Improves with: none Worsens with: none Associated Symptoms: other Treatments Prior to Arrival: none - Related Data Home Medications Medication Instructions Recorded Confirmed Lisinopril-Hctz 20-12.5 mg 1 tab PO DAILY 08/22/18 12/10/20 [Zestoretic 20-12.5] allopurinoL [Zyloprim] 300 mg PO DAILY 08/22/18 12/10/20 busPIRone HCL 15 mg PO DAILY 08/22/18 12/10/20 Tamsulosin HCl [Flomax] 0.4 mg PO DAILY 12/10/20 12/10/20 buPROPion HCL [Wellbutrin SR] 150 mg PO DIRECTED 12/10/20 12/10/20 Previous Rx's Medication Instructions Recorded Celecoxib [CeleBREX] 200 mg PO DAILY 5 Days #5 capsule 05/17/20 Allergies Allergy/AdvReac Type Severity Reaction Status Date / Time No Known Allergies Allergy Verified 12/10/20 22:11 Review of Systems ROS Statement: Those systems with pertinent positive or pertinent negative responses have been documented in the HPI. ROS Other: All systems not noted in ROS Statement are negative. Constitutional: Denies: fever, chills, weakness Eyes: Denies: vision change ENT: Denies: hearing loss Respiratory: Denies: cough, dyspnea Cardiovascular: Denies: chest pain, edema, syncope Gastrointestinal: Denies: abdominal pain, vomiting, diarrhea Genitourinary: Denies: dysuria, hematuria Musculoskeletal: Denies: back pain Skin: Denies: rash Neurological: Reports: numbness. Denies: headache, weakness, paresthesias Past Medical History Past Medical History: GERD/Reflux, Hypertension, Osteoarthritis (OA), Sleep Apnea/CPAP/BIPAP Additional Past Medical History / Comment(s): GOUT, USES C PAP MACHINE History of Any Multi-Drug Resistant Organisms: None Reported Past Surgical History: Cholecystectomy, Orthopedic Surgery, Tonsillectomy Additional Past Surgical History / Comment(s): RT ANKLE SX, NECK SX AND SINUS SX, Past Anesthesia/Blood Transfusion Reactions: No Reported Reaction Past Psychological History: Anxiety Smoking Status: Current every day smoker Past Alcohol Use History: Daily Past Drug Use History: None Reported - Past Family History Mother Family Medical History: No Reported History General Exam Limitations: no limitations General appearance: alert, in no apparent distress Head exam: Present: atraumatic, normocephalic Eye exam: Present: normal appearance. Absent: scleral icterus, conjunctival injection ENT exam: Present: normal oropharynx, mucous membranes dry Neck exam: Present: normal inspection Respiratory exam: Present: normal lung sounds bilaterally. Absent: respiratory distress, wheezes, rales, rhonchi, stridor Cardiovascular Exam: Present: regular rate, normal rhythm, normal heart sounds. Absent: systolic murmur, diastolic murmur, rubs, gallop GI/Abdominal exam: Present: soft. Absent: distended, tenderness, guarding, rebound, rigid, mass Extremities exam: Present: normal inspection, normal capillary refill. Absent: pedal edema, calf tenderness Back exam: Present: normal inspection. Absent: CVA tenderness (R), CVA tenderness (L) Neurological exam: Present: alert, oriented X3, CN II-XII intact. Absent: motor sensory deficit Skin exam: Present: warm, dry, intact, normal color. Absent: rash Course Vital Signs 12/10/20 12/10/20 21:01 22:11 Temperature 98.5 F Pulse Rate 100 80 Respiratory 20 18 Rate Blood Pressure 185/86 141/98 O2 Sat by Pulse 95 97 Oximetry EKG Findings - EKG Results: EKG: interpreted by RENNY, sinus rhythm (With PVC, rate 87 bpm), normal axis, normal QRS, normal ST/T Medical Decision Making - Lab Data Result diagrams: 12/10/20 21:41 12/10/20 21:41 Lab Results 08/28/21 08/28/21 08/28/21 Range/Units 21:41 21:41 21:41 WBC 12.2 H (3.8-10.6) k/uL RBC 4.20 L (4.30-5.90) m/uL Hgb 14.7 (13.0-17.5) gm/dL Hct 42.3 (39.0-53.0) % MCV 100.6 H (80.0-100.0) fL MCH 34.9 (25.0-35.0) pg MCHC 34.7 (31.0-37.0) g/dL RDW 14.7 (11.5-15.5) % Plt Count 237 (150-450) k/uL MPV 7.9 Neutrophils % 67 % Lymphocytes % 25 % Monocytes % 5 % Eosinophils % 1 % Basophils % 1 % Neutrophils # 8.1 H (1.3-7.7) k/uL Lymphocytes # 3.0 (1.0-4.8) k/uL Monocytes # 0.6 (0-1.0) k/uL Eosinophils # 0.1 (0-0.7) k/uL Basophils # 0.1 (0-0.2) k/uL Poikilocytosis Slight Macrocytosis Slight PT 10.2 (9.0-12.0) sec INR 0.9 (<1.2) APTT 24.1 (22.0-30.0) sec Sodium (137-145) mmol/L Potassium (3.5-5.1) mmol/L Chloride (98-107) mmol/L Carbon Dioxide (22-30) mmol/L Anion Gap mmol/L BUN (9-20) mg/dL Creatinine (0.66-1.25) mg/dL Est GFR (CKD-EPI)AfAm (>60 ml/min/1.73 sqM) Est GFR (CKD-EPI)NonAf (>60 ml/min/1.73 sqM) Glucose (74-99) mg/dL Plasma Lactic Acid Ari (0.7-2.0) mmol/L Calcium (8.4-10.2) mg/dL Magnesium (1.6-2.3) mg/dL Total Bilirubin (0.2-1.3) mg/dL AST (17-59) U/L ALT (4-49) U/L Alkaline Phosphatase (38-126) U/L Troponin I (0.000-0.034) ng/mL Total Protein (6.3-8.2) g/dL Albumin (3.5-5.0) g/dL Urine Color Light Yellow Urine Appearance Clear (Clear) Urine pH 6.0 (5.0-8.0) Ur Specific [place] 1.013 (1.001-1.035) Urine Protein Negative (Negative) Urine Glucose (UA) Negative (Negative) Urine Ketones Negative (Negative) Urine Blood Negative (Negative) Urine Nitrite Negative (Negative) Urine Bilirubin Negative (Negative) Urine Urobilinogen <2.0 (<2.0) mg/dL Ur Leukocyte Esterase Negative (Negative) 12/10/20 12/10/20 12/10/20 Range/Units 21:41 21:41 21:41 WBC (3.8-10.6) k/uL RBC (4.30-5.90) m/uL Hgb (13.0-17.5) gm/dL Hct (39.0-53.0) % MCV (80.0-100.0) fL MCH (25.0-35.0) pg MCHC (31.0-37.0) g/dL RDW (11.5-15.5) % Plt Count (150-450) k/uL MPV Neutrophils % % Lymphocytes % % Monocytes % % Eosinophils % % Basophils % % Neutrophils # (1.3-7.7) k/uL Lymphocytes # (1.0-4.8) k/uL Monocytes # (0-1.0) k/uL Eosinophils # (0-0.7) k/uL Basophils # (0-0.2) k/uL Poikilocytosis Macrocytosis PT (9.0-12.0) sec INR (<1.2) APTT (22.0-30.0) sec Sodium 126 L (137-145) mmol/L Potassium 3.6 (3.5-5.1) mmol/L Chloride 94 L (98-107) mmol/L Carbon Dioxide 19 L (22-30) mmol/L Anion Gap 13 mmol/L BUN 16 (9-20) mg/dL Creatinine 1.41 H (0.66-1.25) mg/dL Est GFR (CKD-EPI)AfAm 60 (>60 ml/min/1.73 sqM) Est GFR (CKD-EPI)NonAf 52 (>60 ml/min/1.73 sqM) Glucose 117 H (74-99) mg/dL Plasma Lactic Acid Ari 1.1 (0.7-2.0) mmol/L Calcium 9.6 (8.4-10.2) mg/dL Magnesium 2.0 (1.6-2.3) mg/dL Total Bilirubin 0.4 (0.2-1.3) mg/dL AST 25 (17-59) U/L ALT 18 (4-49) U/L Alkaline Phosphatase 92 (38-126) U/L Troponin I <0.012 (0.000-0.034) ng/mL Total Protein 7.2 (6.3-8.2) g/dL Albumin 4.5 (3.5-5.0) g/dL Urine Color Urine Appearance (Clear) Urine pH (5.0-8.0) Ur Specific [place] (1.001-1.035) Urine Protein (Negative) Urine Glucose (UA) (Negative) Urine Ketones (Negative) Urine Blood (Negative) Urine Nitrite (Negative) Urine Bilirubin (Negative) Urine Urobilinogen (<2.0) mg/dL Ur Leukocyte Esterase (Negative) Disposition Clinical Impression: Hyponatremia Disposition: HOME SELF-CARE Condition: Good Instructions (If sedation given, give patient instructions): Hyponatremia (ED) Is patient prescribed a controlled substance at d/c from ED?: No Referrals: Mira Gonsalves DO [Primary Care Provider] - 1-2 days Kasandra Mays MD [REFERRING] - 1-2 days
[2020-12-10 21:51] LABS: Basophils # (A) 0.1 k/uL (0-0.2); Basophils % (A) 1 %; Eosinophils # (A) 0.1 k/uL (0-0.7); Eosinophils % (A) 1 %; HCT 42.3 % (39.0-53.0); HGB 14.7 gm/dL (13.0-17.5); Lymphocytes % (A) 25 %; MCH 34.9 pg (25.0-35.0); MCHC 34.7 g/dL (31.0-37.0); MCV 100.6 fL (80.0-100.0); Macrocytosis Slight; Mean Platelet Volume 7.9; Monocytes # (A) 0.6 k/uL (0-1.0); Monocytes % (A) 5 %; Neutrophils # (A) 8.1 k/uL (1.3-7.7); Neutrophils % (A) 67 %; Platelet Count 237 k/uL (150-450); Poikilocytosis Slight; RDW 14.7 % (11.5-15.5); WBC 12.2 k/uL (3.8-10.6)
--- NOTE | 2020-12-10 21:54 | XR ---
EXAMINATION TYPE: XR chest 2V DATE OF EXAM: 12/10/2020 COMPARISON: 07/03/2012 HISTORY: Weakness TECHNIQUE: FINDINGS: Heart and mediastinum are normal. Lungs are clear. Diaphragm is normal. Bony thorax is inta ct. There are chest leads. There is cervical spine fusion surgery. IMPRESSION: No active cardiopulmonary disease. Normal heart. No adverse change.
[2020-12-10 22:02] LABS: INR 0.9 (<1.2); Partial Thromboplastin Time 24.1 sec (22.0-30.0); Prothrombin Time 10.2 sec (9.0-12.0)
[2020-12-10 22:12] LABS: Albumin 4.5 g/dL (3.5-5.0); Calcium 9.6 mg/dL (8.4-10.2); Potassium 3.6 mmol/L (3.5-5.1); Total Bilirubin 0.4 mg/dL (0.2-1.3); Total Protein 7.2 g/dL (6.3-8.2)
[2020-12-10 22:15] VITALS: RESP 18
--- NOTE | 2020-12-10 22:21 | CT ---
EXAMINATION TYPE: CT brain wo con DATE OF EXAM: 12/10/2020 COMPARISON: None HISTORY: Left leg numbness and weakness. CT DLP: 1161.4 mGycm Automated exposure control for dose reduction was used. Ventricles have normal size. There is no mass effect nor midline shift. There is no sign of intracran ial hemorrhage. Calvarium is intact. Skull base is intact. There is normal aeration of the mastoid si nuses. There is mucosal thickening in the ethmoid frontal and sphenoid sinuses. IMPRESSION: Negative CT scan of the brain. Sinusitis.
[2020-12-10 23:00] LABS: Appearance,Urine Clear (Clear); Bilirubin,Urine Negative (Negative); Blood,Urine Negative (Negative); Color,Urine Light Yellow; Glucose,Urine (UA) Negative (Negative); Ketones,Urine Negative (Negative); Leukocyte Esterase,Urine Negative (Negative); Nitrite,Urine Negative (Negative); Protein,Urine Negative (Negative); Specific Gravity,Urine 1.013 (1.001-1.035); Urobilinogen,Urine <2.0 mg/dL (<2.0)
[2020-12-11 00:13] VITALS: BP 140/91; PULSE 82; TEMP 97.9
== END 2020-12-11 00:04 | disposition home or self-care (01) ==
LOC: EC 20:56
DX: E87.1 Hypo-osmolality and hyponatremia (principal); I10 Essential (primary) hypertension; K21.9 Gastro-esophageal reflux disease without esophagitis; M19.90 Unspecified osteoarthritis, unspecified site; F41.9 Anxiety disorder, unspecified; F17.210 Nicotine dependence, cigarettes, uncomplicated; Z79.899 Other long term (current) drug therapy
CPT/HCPCS: 36415; 70450; 71046; 80053; 81003; 83605; 83735; 84484; 85025; 85610; 85730; 93005; 99284

== ENCOUNTER → 2021-03-31 | Outpatient (CLI) | payer MEDICARE ==
[2021-03-31 16:00] LABS: Albumin 4.2 g/dL (3.5-5.0); Calcium 9.2 mg/dL (8.4-10.2); Potassium 3.8 mmol/L (3.5-5.1); Total Bilirubin 0.3 mg/dL (0.2-1.3); Total Protein 7.2 g/dL (6.3-8.2)
[2021-03-31 16:02] LABS: HCT 42.5 % (39.0-53.0); HGB 14.7 gm/dL (13.0-17.5); MCH 35.2 pg (25.0-35.0); MCHC 34.7 g/dL (31.0-37.0); MCV 101.5 fL (80.0-100.0); Macrocytosis Slight; Mean Platelet Volume 7.6; Platelet Count 235 k/uL (150-450); RBC 4.19 m/uL (4.30-5.90); RDW 13.7 % (11.5-15.5); WBC 9.4 k/uL (3.8-10.6)
[2021-03-31 16:06] LABS: Partial Thromboplastin Time 24.7 sec (22.0-30.0); Prothrombin Time 10.3 sec (9.0-12.0)
[2021-03-31 17:25] LABS: Appearance,Urine Clear (Clear); Bilirubin,Urine Negative (Negative); Blood,Urine Negative (Negative); Color,Urine Light Yellow; Glucose,Urine (UA) Negative (Negative); Ketones,Urine Negative (Negative); Leukocyte Esterase,Urine Negative (Negative); Nitrite,Urine Negative (Negative); PH, Urine 5.5 (5.0-8.0); Protein,Urine Negative (Negative); Specific Gravity,Urine 1.007 (1.001-1.035); Urobilinogen,Urine <2.0 mg/dL (<2.0)
== END | disposition home or self-care (01) ==
LOC: LABPAT 14:20
PROVIDERS: ATTEND Orthopaedic Surgery
DX: Z01.812 Encounter for preprocedural laboratory examination (principal)
CPT/HCPCS: 80053; 81003; 85027; 85610; 85730; 87070

== ENCOUNTER 2021-04-11 05:33 | Day surgery (SDC) | payer MEDICARE ==
[2021-04-04 12:28] VITALS: BMI 31.6
[~2021-04-11 05:33] MED LIST changes: -DEXAMETHASONE SOD PHOSPHATE 4 MG/ML 1 ML VIAL IV ONE; -ONDANSETRON 4 MG/2 ML VIAL IVP ONE; -ROPIVACAINE 246.25 MG, EPINEPHrine 0.5 MG, KETOROLAC 30 MG, cloNIDine HCL/PF 80 MCG, WA... MISCELLANE PRN
[2021-04-11] MEDS ORDERED: ONDANSETRON 4 MG/2 ML VIAL IVP ONE (05:46)
[2021-04-11] MEDS ORDERED: LIDOCAINE 1% (10MG/ML) FOR IV START INTRADERMA PRN (05:46)
[2021-04-11] MEDS ORDERED: LACTATED RINGERS 1,000 ML IV SCH (05:46)
[2021-04-11] MEDS ORDERED: fentaNYL (PF) 50 MCG/ML 2 ML AMP ONE (06:57)
[2021-04-11] MEDS ORDERED: HEPARIN SODIUM,PORCINE 10,000 UNIT/ML 1 ML VIAL ONE (06:57)
[2021-04-11] MEDS ORDERED: PROPOFOL 10 MG/ML 20 ML VIAL IV ONE (06:57)
[2021-04-11] MEDS ORDERED: LIDOCAINE 1% INJ 10MG/ML (20 ML MDV) ONE (06:57)
[2021-04-11] MEDS ORDERED: GLYCOPYRROLATE 0.2 MG/ML 2 ML VIAL ONE (06:57)
[2021-04-11] MEDS ORDERED: TRANEXAMIC ACID 1,000 MG/10 ML VIAL ONE (06:57)
[2021-04-11] MEDS ORDERED: SODIUM CHLORIDE 0.9% IRRIG 1,000 ML BTL IRRIGATION ONE (06:57)
[2021-04-11] MEDS ORDERED: KETOROLAC 15 MG/ML 1 ML VIAL ONE (06:57)
[2021-04-11] MEDS ORDERED: SUCCINYLCHOLINE CHLORIDE 100 MG/5 ML SYR IV ONE (06:57)
[2021-04-11] MEDS ORDERED: HYDROmorphone (PF) 1 MG/ML ONE (06:57)
[2021-04-11] MEDS ORDERED: MIDAZOLAM 2 MG/2 ML VIAL ONE (06:57)
[2021-04-11] MEDS ORDERED: SODIUM CHLORIDE 0.9% 100 ML BAG ONE (06:57)
[2021-04-11] MEDS ORDERED: ROCURONIUM 10 MG/ML (5 ML VIAL) IV ONE (06:57)
[2021-04-11] MEDS ORDERED: NEOSTIGMINE 1 MG/ML 10 ML VIAL ONE (06:57)
[2021-04-11] MEDS ORDERED: ONDANSETRON 4 MG/2 ML VIAL IVP PRN (07:02)
[2021-04-11] MEDS ORDERED: HYDROmorphone 0.5 MG/0.5 ML SYRINGE IVP PRN ×2 (07:02)
[2021-04-11] MEDS ORDERED: HYDROmorphone 0.2 MG/1 ML SYRINGE IVP PRN (07:02)
[2021-04-11] MEDS ORDERED: NALOXONE 0.4 MG/ML 1 ML VIAL IV PRN (07:02)
[2021-04-11] MEDS ORDERED: HYDROcodone/APAP 7.5-325MG 1 EACH TAB PO PRN ×2 (07:03)
[2021-04-11] MEDS ORDERED: SODIUM CHLORIDE 0.9% 1,000 ML IV SCH (07:15)
[2021-04-11] MEDS ORDERED: ceFAZolin 1,000 MG in SODIUM CHLORIDE 0.9% 1,000 ML IRRIGATION ONE (07:33)
[2021-04-11] MEDS ORDERED: ROPIVACAINE 5 MG/ML 30 ML VIAL MISCELLANE ONE (07:42)
--- NOTE | 2021-04-11 08:13 | P.OP ---
Date of Procedure: 04/11/21 Preoperative Diagnosis: Avascular necrosis left hip Postoperative Diagnosis: Avascular necrosis left hip Procedure(s) Performed: Left total hip arthroplasty with a direct anterior approach Implants: [employer] Polarstem standard size 6 [employer] R3, 3 hole hemispherical acetabular shell, 48 mm [employer] Reflection 6.5 mm cancellus screw, 20 mm 2 [employer] R3, XLPE 20 acetabular liner [employer] Oxinium femoral head 32 m, +4 All components were press-fit. The articulation is Oxinium on polyethylene. Anesthesia: GETA Surgeon: Bobby Kolb Flight Mechanic #1: Harriet Luz Estimated Blood Loss (ml): 100 Pathology: other (Femoral head) Condition: stable Disposition: PACU Indications for Procedure: After failure of conservative treatment we discussed the surgical and nonsurgical treatment options at length. Patient wishes to proceed with a total hip arthroplasty with a direct anterior approach. Complications specific to this procedure were discussed at length, including but not limited to infection, leg length discrepancy, dislocation, nerve injury, and fracture. Covid-19 was also discussed at length with the patient, and they are aware of the current policies and procedures. The patient was given the option of delaying surgery, but they elect to proceed knowing these risks. Patient is aware of all these complications and informed consent was obtained Operative Findings: The operative findings are consistent with severe avascular necrosis of the left hip Description of Procedure: Patient was seen and evaluated in the preoperative area and the consent was reviewed. The operative site was marked with a skin marker. The patient was then brought to the operating room and given preoperative antibiotics intrav enously. 1 g of Tranexamic acid was also given intravenously. A general anesthetic was administered by the anesthesia department. The patient was then placed on the [place] table with the bony prominences well-padded. The hip area was then prepped with a ChloraPrep solution and draped in the usual sterile fashion. A universal timeout was then performed, which confirmed the patient's name, surgical site, ALLERGIES, and procedure being performed on the consent. Next the incision site was located at 1 cm distal to the anterior superior iliac spine along the flexion crease of the hip. The skin and subcutaneous tissues were sharply incised. Incision was carefully dissected down to the fascia overlying the tensor fascia shanelle muscle. This fascia was then incised in line with the incision. Care was taken to stay laterally in order to avoid injuring the lateral femoral cutaneous nerve. Next, using blunt finger dissection, the tensor fascia shanelle muscle was dissected off its investing fascia. The muscle was then carefully retracted laterally with a cobra retractor over the lateral neck of the femur. Next, the circumflex vessels were identified and cauterized using the AquaMantis device. The anterior hip capsule was then exposed. The capsule was then opened and an inverted T fashion. Cobra retractors were then placed intracapsularly. The retractors were maintained intracapsular throughout the procedure. The proximal femur was then visualized. Fluoroscopic x-rays were then taken in order to evaluate the preoperative leg lengths. A small amount of traction was placed on the leg. The femoral neck was then osteotomized at the appropriate level above the lesser trochanter. A small wedge of bone was then removed from the remaining femoral head. Next, using a corkscrew the femoral head was removed from the acetabulum. On gross visual inspection, the femoral head had complete loss of articular cartilage and multiple periarticular osteophytes. The femoral head was then measured. Attention was then turned to the acetabulum. The acetabulum was exposed and any remaining labrum was excised. Sequential reaming of the acetabulum was performed using fluoroscopic guidance until there was a good bed of bleeding cancellus bone. When the appropriate size was reached, a trial was then placed. The position and fit of the trial was checked with fluoroscopy. The trial was then removed. Then, using fluoroscopic guidance, the final implant was impacted at 20 of anteversion and 40 of abduction, and fully seated in the acetabulum. 2 screws were then placed in the acetabulum. Again fluoroscopy was used to check position of the screws. Next, the liner was then impacted, with a 20 elevated liner located in the anterior superior quadrant. Component locking was confirmed. Attention was then directed to the femur. With the aid of the [place] table, the femur was externally rotated to approximately 130, extended, and adducted under the opposite leg. A side hook was then placed under the proximal femur, and the side hook elevator was used to elevate the proximal femur while releasing the capsule. Retractors were then placed. A capsular release was performed, as well as a release of the conjoined tendon, which afforded excellent visualization of the proximal femur. Next, a box osteotome was used to lateralize the proximal femur. A almond blancher hand was then used to locate the femoral canal. Sequential broaching was then performed with appropriate size which afforded excellent fixation in the proximal femur. A trial was then placed with appropriate head and neck, and the hip was gently reduced with the aid of the [place] table. Fluoroscopy was then used to check position of the components, as well as to ensure equal leg lengths. The hip was then gently dislocated and the trials were then removed. Final implants were then impacted and the hip was again reduced. Final fluoroscopic x-rays confirmed that the components were in anatomic position, as well as equal leg lengths. The hip was also taken through range of motion, and found to be stable. The hip was then copiously irrigated with antibiotic solution with pulsatile lavage. The hip was then irrigated with Irrisept solution. The soft tissues were then injected with a ropivacaine solution. A second dose of 1 g of Tranexamic acid was also given intravenously. Any blood collected by [employer] was then returned to the patient at this time. The fascia was then closed with 2-0 strata fix suture. The subcutaneous tissue was closed with 3-0 Vicryl. The subcuticular tissue was closed with 3-0 strata fix suture. The skin was then closed with Exofin skin glue. After the glue and dried, and Optifoam silver impregnated dressing was applied. The patient was then transferred to the recovery room in stable condition. The assistant track coach YAW Bond was required due to the complexity of surgery, and the need for skilled real estate legal assistant for positioning, draping, exposure, retraction, and closure of the wound.
--- NOTE | 2021-04-11 08:20 | XR ---
EXAMINATION TYPE: XR Hip Limited LT, FL guidance operating room DATE OF EXAM: 04/11/2021 Comparison: None Clinical History: 66-year-old male TOTAL LT HIP Findings: Intraoperative fluoroscopy with the 2 images submitted. There is left total hip arthroplasty. Previou s right hip total arthroplasty partially visualized. FLUOROSCOPY Fluoroscopy time of 31 seconds was used during left hip total arthroplasty. 2 image/s document/s the procedure. Impression: Intraoperative fluoroscopy as above.
[2021-04-11 08:41] VITALS: TEMP 97.5
[2021-04-11] MEDS: HYDROmorphone 0.5 MG/0.5 ML SYRINGE IVP PRN ×2 (08:48→08:55)
--- NOTE | 2021-04-11 08:56 | XR ---
EXAMINATION TYPE: XR Hip Limited LT DATE OF EXAM: 04/11/2021 COMPARISON: NONE HISTORY: Postop TECHNIQUE: One view submitted. FINDINGS: There is postsurgical change in near anatomic alignment. There is soft tissue edema and emphysema. IMPRESSION: 1. Postoperative change. Appears in near-anatomic alignment.
[2021-04-11] MEDS: fentaNYL (PF) 50 MCG/ML 2 ML AMP IVP ONE ×2 (09:05→09:21)
[2021-04-11] MEDS ORDERED: LACTATED RINGERS 1,000 ML IV ONE (10:25)
[2021-04-11 11:09] VITALS: RESP 16
[2021-04-11 11:34] VITALS: BP 155/93; PULSE 82
== END 2021-04-11 12:11 | disposition home health service (06) ==
LOC: OR 05:33
PROVIDERS: ATTEND Orthopaedic Surgery
DX: M87.88 Other osteonecrosis, other site (principal); M25.752 Osteophyte, left hip; I10 Essential (primary) hypertension; K30 Functional dyspepsia; H91.90 Unspecified hearing loss, unspecified ear; R45.0 Nervousness; E78.5 Hyperlipidemia, unspecified; G47.33 Obstructive sleep apnea (adult) (pediatric); I73.9 Peripheral vascular disease, unspecified; F17.200 Nicotine dependence, unspecified, uncomplicated; Z98.890 Other specified postprocedural states; Z97.3 Presence of spectacles and contact lenses; Z79.891 Long term (current) use of opiate analgesic; Z79.899 Other long term (current) drug therapy; Z79.1 Long term (current) use of non-steroidal anti-inflammatories (NSAID); Z79.82 Long term (current) use of aspirin
CPT/HCPCS: 27130; 97161; 86891; 86900; 86901; 86850; 73501; C1776; J2250; J1644; J2710; J0690 ×2; J2405; J2001; J3010; J1170 ×2; J2795; J1885; J0330; J2704; 88300

== ENCOUNTER → 2022-09-28 | Outpatient (CLI) | payer MEDICARE, OTHER ==
[2022-09-28 07:03] LABS: African American GFR (CKD) 64 (>60 ml/min/1.73 sqM); Blood Urea Nitrogen 16 mg/dL (9-20); Non-African American GFR(CKD) 56 (>60 ml/min/1.73 sqM)
--- NOTE | 2022-09-28 09:08 | CT ---
EXAMINATION TYPE: CT abdomen pelvis w con DATE OF EXAM: 09/28/2022 COMPARISON: 12/09/2021 HISTORY: 67-year-old male R1 0.31, RLQ pain TECHNIQUE: Contiguous axial scanning of the abdomen and pelvis following administration of 100 ml Iso julio 300 IV contrast. Delayed images through the kidneys and coronal/sagittal reconstructions perform ed. CT DLP: 1431.2 mGycm Automated exposure control for dose reduction was used. FINDINGS: LUNG BASES: Partially visualized aortic valvular calcifications. Mild dependent atelectasis. LIVER/GB: Liver enlarged measuring 20.2 cm with low attenuation compatible with fatty infiltration. P ortal venous system is patent. No biliary duct dilatation. Cholecystectomy clips. PANCREAS: No significant abnormality is seen. SPLEEN: No significant abnormality is seen. ADRENALS: No significant abnormality is seen. KIDNEYS: Atrophic but excreting left kidney. Otherwise, no significant abnormality seen on the right. BOWEL: Tiny hiatal hernia. No dilated small bowel. Normal appendix. Moderate stool in the right side of the colon. Overall mild stool burden. No pericolonic inflammatory change. LYMPH NODES: No significant abnormality is seen. OTHER: No significant abnormality is seen. PELVIS: Moderate circumferential bladder wall thickening. Limited assessment of the pelvis due to ext ensive metal artifact from the patient's total hip arthroplasties. No obvious abnormal fluid collecti on or pelvic lymphadenopathy seen. BONES: Bilateral total hip device use. Mild degenerative disc disease lower thoracic spine. IMPRESSION: 1. HEPATOMEGALY AT 20.2 CM WITH UNDERLYING HEPATIC STEATOSIS. CORRELATE WITH LFTs, LIPID PROFILE, AN D PATIENT RISK FACTORS. 2. INCIDENTAL ATROPHIC BUT EXCRETING LEFT KIDNEY. 3. Moderate stool burden in the right side of the colon. Normal appendix. 4. Tiny hiatal hernia. 5. Moderate circumferential bladder wall thickening could represent chronic bladder wall hypertrophy . Correlate to exclude cystitis. The region of the prostate gland and other portions of the pelvis ar e obscured by dense metal artifact from the patient's total hip arthroplasties.
== END | disposition home or self-care (01) ==
LOC: RADCTMAIN 06:25
PROVIDERS: ATTEND Family Medicine
DX: K76.0 Fatty (change of) liver, not elsewhere classified (principal); R16.0 Hepatomegaly, not elsewhere classified; K44.9 Diaphragmatic hernia without obstruction or gangrene; N32.89 Other specified disorders of bladder; N26.1 Atrophy of kidney (terminal)
CPT/HCPCS: 82565; 84520; 74177; 36415; Q9967